=== PATIENT | male | born 1945 | race Caucasian/White ===

== ENCOUNTER → 2016-06-23 | Outpatient (CLI) | payer MEDICARE | END | disposition home or self-care (01) | LOC: PCVCCLINIC 12:39 | PROVIDERS: ATTEND Internal Medicine | DX: E78.5 Hyperlipidemia, unspecified (principal) | CPT/HCPCS: 80061 ==

== ENCOUNTER → 2017-06-26 | Outpatient (CLI) | payer MEDICARE | END | disposition home or self-care (01) | LOC: PCVCIMAG 12:49 | DX: I65.23 Occlusion and stenosis of bilateral carotid arteries (principal); I25.10 Atherosclerotic heart disease of native coronary artery without angina pectoris; E78.5 Hyperlipidemia, unspecified; I10 Essential (primary) hypertension; E11.9 Type 2 diabetes mellitus without complications; G47.33 Obstructive sleep apnea (adult) (pediatric); Z79.4 Long term (current) use of insulin; Z95.1 Presence of aortocoronary bypass graft; Z79.82 Long term (current) use of aspirin; Z79.899 Other long term (current) drug therapy | CPT/HCPCS: 80061; 93005; 93880; G0463 ==

== ENCOUNTER → 2018-01-03 | Outpatient (CLI) | payer MEDICARE ==
--- NOTE | 2018-01-03 13:50 | PCVCIMAG ---
APPROVED REPORT Indications Stenosis Risk Factors Hypertension: Hyperlipidemia Doppler Spectral Velocity Analysis PSV / EDVPSV / EDV ECA (R) 226 / 6 cm/sECA (L) 340 / 37 cm/s dICA (R) 98 / 20 cm/sdICA (L) 52 / 14 cm/s Pk (R) 130 / 28 cm/smICA (L) 108 / 16 cm/s pICA (R) 137 / 16 cm/spICA (L) 294 / 41 cm/s Bulb (R) 114 / 18 cm/sBulb (L) 64 / 16 cm/s dCCA (R) 95 / 10 cm/sdCCA (L) 69 / 14 cm/s mCCA (R) 86 / 16 cm/smCCA (L) 74 / 19 cm/s Vert (R) 51 / 10 cm/sVert (L) 44 / 14 cm/s ICA/CCA 1.44ICA/CCA 4.26 Basic Measurements Blood Pressure: Pulses: Right Left RightLeft Brachial(Sitting) 132/70kcEo017/66mmHgTemporal Real Time B-Mode Imaging Vert. (R)AntegradeVert. (L)Antegrade Findings The right carotid bulb has moderate calcified plaque. The right proximal internal carotid artery shows 40-50% stenosis. The right common carotid artery shows <40% stenosis. The right external carotid artery shows >50% stenosis. The left carotid bulb has moderately severe calcified plaque. The left proximal internal carotid artery shows 70-90% stenosis. The left common carotid artery shows <40% stenosis. The left external carotid artery shows >90% stenosis. Conclusion 1. Right internal carotid artery stenosis (40-50%) 2. Left internal carotid artery stenosis (79-90%) 3. Bilateral common carotid artery stenoses (<40%) 4. Antegrade vertebral flow
== END | disposition home or self-care (01) ==
LOC: PCVCIMAG 12:49
PROVIDERS: ATTEND Internal Medicine
DX: I65.23 Occlusion and stenosis of bilateral carotid arteries (principal); I25.10 Atherosclerotic heart disease of native coronary artery without angina pectoris; I10 Essential (primary) hypertension; E78.5 Hyperlipidemia, unspecified; E11.9 Type 2 diabetes mellitus without complications; G47.33 Obstructive sleep apnea (adult) (pediatric); R09.89 Other specified symptoms and signs involving the circulatory and respiratory systems; Z79.4 Long term (current) use of insulin; Z95.1 Presence of aortocoronary bypass graft; Z79.82 Long term (current) use of aspirin
CPT/HCPCS: 80061; 93005; 93880; G0463

== ENCOUNTER → 2018-08-09 | Outpatient (CLI) | payer MEDICARE ==
--- NOTE | 2018-08-09 12:37 | PCVCIMAG ---
APPROVED REPORT Laterality: Bilateral Patient Location: Out-Patient Doppler Spectral Velocity Analysis PSV / EDVPSV / EDV ECA (R) 179 / 21 cm/sECA (L) 269 / 36 cm/s dICA (R) 130 / 37 cm/sdICA (L) 55 / 21 cm/s Pk (R) 108 / 20 cm/smICA (L) 70 / 24 cm/s pICA (R) 123 / 28 cm/spICA (L) 130 / 30 cm/s Bulb (R) 108 / 16 cm/sBulb (L) 263 / 51 cm/s dCCA (R) 104 / 26 cm/sdCCA (L) 44 / 12 cm/s mCCA (R) 96 / 22 cm/smCCA (L) 51 / 12 cm/s Vert (R) 41 / 13 cm/sVert (L) 23 / cm/s ICA/CCA 1.25ICA/CCA 2.95 Basic Measurements Blood Pressure: Pulses: Right Left RightLeft Brachial(Sitting) 118/74ccDv369/58mmHgTemporal Findings The right carotid bulb has moderate calcified plaque. The right proximal internal carotid artery shows 40-50% stenosis. The right common carotid artery shows <40% stenosis. The right external carotid artery shows >50% stenosis. The left carotid bulb has moderately severe calcified plaque. The left proximal internal carotid artery shows 70-90% stenosis. The left common carotid artery shows <40% stenosis. The left external carotid artery shows >50% stenosis. Conclusion 1. Right internal carotid artery stenosis (40-50%). 2. Left internal carotid artery stenosis (70-90%) 3. Bilateral common carotid artery stenoses (<40%) 4. Antegrade vertebral flow Similar to a study dated December 2017
== END | disposition home or self-care (01) ==
LOC: PCVCIMAG 11:34
PROVIDERS: ATTEND Internal Medicine
DX: I65.23 Occlusion and stenosis of bilateral carotid arteries (principal); E11.9 Type 2 diabetes mellitus without complications; I10 Essential (primary) hypertension; E78.5 Hyperlipidemia, unspecified; I25.10 Atherosclerotic heart disease of native coronary artery without angina pectoris; Z79.4 Long term (current) use of insulin; Z95.1 Presence of aortocoronary bypass graft
CPT/HCPCS: 93880

== ENCOUNTER → 2018-08-14 | Outpatient (CLI) | payer MEDICARE ==
[~2018-08-14] MED LIST: REGADENOSON 0.4 MG/5 ML DISP.SYRIN. IV ONE
--- NOTE | 2018-08-15 12:23 | PCVCIMAG ---
APPROVED REPORT Imaging Protocol: Rest Tc-99m/Stress Tc-99m 1 day Study performed: 08/14/2018 13:59:41 Indication: CAD Patient Location: Out-Patient Stress Nurse: Zeny Nicholson RN, MIKA Magdaleno Tech:Dez Webster [id number] Ht: 5 ft 5 in Wt: 220 lbs BSA: 2.06 m2 HR: 74 bpm BP: 181/77 mmHg BMI: 36.6 Rhythm: Sinus Rhythm, First Degree AV Block, ST and T Abnormality Medical History Medical History: Age, Hyperlipidemia, CVD, CAD, DM Medications: Amlodipine, ASA, Carvedilol, Novolog, Lantus, Lisinopril-HCTZ Allergies: No known drug allergies Previous Cardiac Procedures: CABG Exercise History: Sedentary Meds Held (24 hrs): Carvedilol Resting Data Rest SPECT myocardial perfusion imaging was performed in supine position 45 minutes following the intravenous injection of 10.5 mCi of Tc-99m Sestamibi. Time of rest injection: 1340 Date: 08/14/2018 Administration Route: IV Administration Site: Right Hand Pharmacologic Stress Pharmacologic stress test was performed by injecting Regadenoson 0.4 mg IV push over 10-15 seconds immediately followed by the intravenous injection of 34.4 mCi of Tc-99m Sestamibi. Time of stress injection: 1445 Date: 08/14/2018 Administration Route: IV Administration Site: Right Hand Gated Stress SPECT was performed 45 minutes after stress injection. The images were gated to evaluate regional wall motion and calculate left ventricular ejection fraction. Stress Test Details Stress Test: Pharmacologic stress testing performed using 0.4 mg of regadenoson per 5 mL given IV over 10 seconds. Reason for pharmacologic stress test: physical limitation. HRMax Heart Rate (APMHR): 146 bpm Resting HR: 74 bpmTarget HR (85% APMHR): 124 bpm Max HR Achieved: 96 bpm % of APMHR: 65 Recovery HR: 81 bpm BP Resting BP: 181/77 mmHg Max BP: 152/70 mmHg Recovery BP: 161/74 mmHg ECG Resting ECG: Sinus Rhythm, nonspecific ST-T abnormalities Stress ECG: Sinus Rhythm, nonspecific ST-T abnormalities ST Change: None Maximum ST Deviation: 0 mm Arrhythmia: None Recovery ECG: Sinus Rhythm, nonspecific ST-T abnormalities Clinical Reason for Termination: Completed protocol Stress Symptoms: Lightheaded Symptoms resolved during recovery. Stress ECG Conclusion ECG: Non-ischemic Clinical: Non-ischemic Study Quality Study: Good Study Data Post stress, the left ventricular ejection was 37%.. SSS: 21 SRS: 6 SDS: 15 TID = 1.21. Perfusion Large sized area of moderate reversible ischemia involving the inferior left ventricle consistent with a right coronary artery distribution. Medium sized area of moderate reversible ischemia involving the basal anterolateral left ventricle consistent with a diagonal distribution. Wall Motion Moderately decreased left ventricular systolic function. Nuclear Conclusion Large sized area of moderate reversible ischemia involving the inferior left ventricle consistent with a right coronary artery distribution. Medium sized area of moderate reversible ischemia involving the basal anterolateral left ventricle consistent with a diagonal distribution. Post stress, the left ventricular ejection was 37%. Findings are new since November 2015 study. Interpreted by: Jerry Mendez MD Electronically Approved: 08/14/2018 21:38:58 <Conclusion> ECG: Non-ischemic Clinical: Non-ischemic
== END | disposition home or self-care (01) ==
LOC: PCVCIMAG 13:29
PROVIDERS: ATTEND Internal Medicine
DX: I25.10 Atherosclerotic heart disease of native coronary artery without angina pectoris (principal); I10 Essential (primary) hypertension; E11.9 Type 2 diabetes mellitus without complications; E78.5 Hyperlipidemia, unspecified; Z79.4 Long term (current) use of insulin; Z95.1 Presence of aortocoronary bypass graft
CPT/HCPCS: 78452; 93017; A9500; J2785

== ENCOUNTER → 2018-08-15 | Outpatient (CLI) | payer MEDICARE | END | disposition home or self-care (01) | LOC: PCVCCLINIC 15:30 | PROVIDERS: ATTEND Internal Medicine | DX: I25.10 Atherosclerotic heart disease of native coronary artery without angina pectoris (principal); I65.23 Occlusion and stenosis of bilateral carotid arteries; I10 Essential (primary) hypertension; E78.5 Hyperlipidemia, unspecified; E11.9 Type 2 diabetes mellitus without complications; G47.33 Obstructive sleep apnea (adult) (pediatric); Z79.4 Long term (current) use of insulin; Z95.1 Presence of aortocoronary bypass graft; Z79.899 Other long term (current) drug therapy | CPT/HCPCS: 36415; 80061; 93005; G0463 ==

== ENCOUNTER → 2018-08-19 | Outpatient (CLI) | payer MEDICARE ==
--- NOTE | 2018-08-19 12:27 | PCVCIMAG ---
APPROVED REPORT Study performed: 08/19/2018 08:54:43 EXAM: Comprehensive 2D, Doppler, and color-flow Echocardiogram Patient Location: Echo lab Room #: [id number]: routine BSA: 2.13 HR: 73 bpmBP: 127/59 mmHg Rhythm: NSR Other Information Study Quality: Adequate Indications CAD Cardiomyopathy CABG x2 (2000) 2D Dimensions IVSd: 12.14 (7-11mm)LVOT Diam: 20.00 (18-24mm) LVDd: 42.94 mm PWd: 12.93 (7-11mm)Ascending Ao: 33.94 (22-36mm) LVDs: 30.21 (25-40mm) Left Atrium: 43.66 (27-40mm) Aortic Root: 33.06 mm LV Single Plane 4CH: 49.52 % LV Single Plane 2CH: 50.51 % Volumes Left Atrial Volume (Systole) Single Plane 4CH: 61.52 mLSingle Plane 2CH: 64.84 mL LA ESV Index: 31.00 mL/m2 Aortic Valve AoV Peak Cali.: 1.09 m/s AO Peak Gr.: 4.75 mmHgLVOT Max P.73 mmHg LVOT Max V: 0.97 m/s BON Vmax: 2.90 cm2 AI Vmax: 2.84 m/s AI Tripp: 1.28 m/s2 AI PHT: 642.82 ms Mitral Valve E/A Ratio: 0.8 MV Decel. Time: 166.26 ms MV E Max Cali.: 0.85 m/s MV A Cali.: 1.04 m/s IVRT: 72.66 ms TDI E/Lateral E': 10.63E/Medial E': 12.14 Medial E' Cali.: 0.07 m/s Lateral E' Cali.: 0.08 m/s Pulmonary Valve PV Peak Cali.: 1.12 m/sPV Peak Gr.: 4.98 mmHg Pulmonary Vein P Vein S: 0.38 m/sP Vein A: 0.25 m/s P Vein D: 0.47 m/sP Vein A Dur.: 90.0 msec P Vein S/D Ratio: 0.81 Tricuspid Valve TR Peak Cali.: 2.35 m/sRAP Estimate: 7.00 mmHg TR Peak Gr.: 22.13 mmHg PA Pressure: 29.00 mmHg Left Ventricle The left ventricle is normal size. There is normal LV segmental wall motion. Mild concentric left ventricular hypertrophy. Left ventricular systolic function is normal. The left ventricular ejection fraction is within the normal range. LVEF is 55%. Mild diastolic dysfunction is present (impaired relaxation pattern). Right Ventricle The right ventricle is normal size. The right ventricular systolic function is normal. Atria The left atrium size is normal. The right atrium size is normal. Aortic Valve The aortic valve is mildly calcified. Trace aortic regurgitation. There is no aortic valvular stenosis. Mitral Valve Mild mitral annular calcification Trace to mild mitral regurgitation. No evidence of mitral valve stenosis. Tricuspid Valve The tricuspid valve is normal in structure. Trace tricuspid regurgitation. Pulmonary artery pressure is 25 mmHg. Pulmonic Valve The pulmonary valve is normal in structure. There is no pulmonic valvular regurgitation. Great Vessels The aortic root is normal in size. IVC is normal in size and collapses >50% with inspiration. Pericardium There is no pericardial effusion. <Conclusion> Left ventricular systolic function is normal. There is normal LV segmental wall motion. LVEF is 55%. Mild diastolic dysfunction The aortic valve is mildly calcified. Trace aortic regurgitation, no stenosis. Mild mitral annular calcification. Trace to mild mitral regurgitation. Trace tricuspid regurgitation. Pulmonary artery pressure of 25 mmHg. There is no pericardial effusion.
== END | disposition home or self-care (01) ==
LOC: PCVCIMAG 07:47
PROVIDERS: ATTEND Internal Medicine
DX: I08.0 Rheumatic disorders of both mitral and aortic valves (principal); I11.9 Hypertensive heart disease without heart failure; I25.10 Atherosclerotic heart disease of native coronary artery without angina pectoris; Z95.1 Presence of aortocoronary bypass graft
CPT/HCPCS: 93306